=== PATIENT | female | born 1985 | race African-American/Black ===

== ENCOUNTER 2016-08-27 09:04 | Emergency (ER) | payer BC ==
[~2016-08-27 09:04] MED LIST: BIRTH CONTROL PILL; LO/OVRAL-281 TAB PO
[2016-08-27 10:46] LABS: URINE SOURCE CLEAN CATCH
[2016-08-27 10:51] LABS: URINE APPEARANCE CLEAR; URINE BILIRUBIN NEG (NEG); URINE BLOOD NEG (NEG); URINE COLOR YELLOW; URINE GLUCOSE NEG (NEG); URINE KETONE NEG (NEG); URINE LEUKOCYTE ESTERASE TRACE (NEG); URINE NITRATE NEG (NEG); URINE PROTEIN NEG (NEG); URINE SPECIFIC GRAVITY 1.025 (1.003-1.035)
[2016-08-27 10:53] LABS: URBCS1 AUWI 0-2 /[HPF] (0-2); URINE BACTERIA AUWI NEG (NEGATIVE); URINE SQUAMOUS EPITHELIAL CELL OCC /[HPF]
[2016-08-27 11:00] LABS: CULTURE INDICATED? NO
== END 2016-08-27 11:14 | disposition home or self-care (01) ==
LOC: CED 09:04
PROVIDERS: Nurse Practitioner Family
DX: A60.04 Herpesviral vulvovaginitis (principal)
CPT/HCPCS: 51701; 81003; 96372; 99283; J0696